=== PATIENT | female | born 1995 | race Caucasian/White ===

== ENCOUNTER 2016-03-11 21:44 | Emergency (ER) | payer BC ==
[~2016-03-11] VITALS: Ht 165.1 cm; Wt 59.4 kg
[~2016-03-11 21:44] MED LIST: ACET-1311 PO; BCPILLS PO; FLUT0.0529 NAE; LCTX PO; MULT-513 PO; TZRCR160 TOP
[2016-03-11 21:54] VITALS: BP 126/82; PULSE 75; TEMP 37; O2SAT 98; Ht 165.1 cm; Wt 59.4 kg
--- NOTE | 2016-03-11 22:19 | EMERGENCY ROOM VISIT NOTE ---
ED Visit Note First contact with patient: 22:01 CHIEF COMPLAINT: Ring stuck on finger HISTORY OF PRESENT ILLNESS: This 20-year-old female patient presents to the emergency department ambulatory complaining that a ring stuck on her right third finger. The patient reports that she usually wears this ring on this finger and does not have issues with it. She states that she had swelling starting tonight. She attempted to remove the ring with straining but was not able. She reports her pain as a 4/10. No recent trauma to the finger. REVIEW OF SYSTEMS: A 6 system review of systems was completed with positives and pertinent negatives in the HPI. ALLERGIES: Fish MEDICATIONS: control pills, Flonase, multivitamin PMH: No significant past medical history. SOCIAL HISTORY: The patient lives locally with family. PHYSICAL EXAM: Vital Signs: Reviewed Nurse's notes, vital signs stable. GENERAL : This is a 20-year-old female, in no acute distress, but appears to be in pain , well-developed, well-nourished. MUSCULOSKELETAL: There is a ring stuck on the right third finger, which is swollen, erythematous and tender. The patient has decreased flexion and extension of the right third finger. Capillary refill less than 2 seconds. No tenderness of the remaining fingers or hand. Full range of motion of the wrist. NEURO: Alert and oriented to person, place, and time. Normal sensation to light and sharp touch. EMERGENCY DEPARTMENT COURSE: I examined the patient. The ring was easily removed using straining by the ED emergency medical technician basic. The patient was discharged home in good condition. DIAGNOSIS: Ring stuck on finger Problem List Medical Problems: (1) No Known Active Medical Problems Status: Chronic Surgical Problems: (1) History of appendectomy Status: Resolved (2) [place] teeth removed Status: Resolved Current/Historical Medications Scheduled Acetaminophen Tab (Tylenol), 650 MG PO Q6H Control Pills ( Control Pills), 1 TAB PO DAILY Lactobacillus Acidophilus (Lactinex), 2-3 TAB PO DAILY Multivitamins/Minerals (Mvi With Minerals), 1 TAB PO DAILY Scheduled PRN Fluticasone Propionate (Nasal) (Flonase), 2 SPRAYS EDGAR DAILY PRN for Nasal Congestion Tazarotene (Tazorac 0.1% Cream), 1 APPLN TOP DAILY PRN for Allergies Coded Allergies: Fish Allergy (Verified Adverse Reaction, Intermediate, GI SYMPTOMS, ) INTOLERANCE PER PARENTS THEY AVOID Vital Signs Date Time Temp Pulse Resp B/P Pulse Ox O2 Delivery O2 Flow Rate FiO2 03/11/16 21:54 37.0 75 20 126/82 98 Room Air Departure Information Impression Primary Impression: Tight ring on finger Dispostion Home / Self-Care Condition GOOD Referrals No Doctor, Assigned (PCP) Patient Instructions A Signature Page, [facility] [email or web address] [facility] Additional Instructions Ice the finger and elevate for pain and swelling. Return or see your family doctor if there is continued swelling pain 1-2 days.
[2016-03-11] MEDS ORDERED: ACET325T96 PO (22:32)
== END 2016-03-11 22:26 | disposition home or self-care (01) ==
LOC: C.EDB 21:45 → C.EDD 22:26
DX: S60.944A Unspecified superficial injury of right ring finger, initial encounter (principal); Z79.3 Long term (current) use of hormonal contraceptives; W49.04XA Ring or other jewelry causing external constriction, initial encounter